=== PATIENT | female | born 1975 | race Caucasian/White ===

== ENCOUNTER 2023-09-05 17:33 | Emergency (ER) | payer OTHER, SELFPAY ==
[2023-09-05] VITALS (8 sets, daily range): BP systolic 146–193; BP diastolic 83–175
[2023-09-05 18:14] LABS: INR 1.09; PT 13.9 Sec (11.4-14.6)
[2023-09-05 18:16] LABS: ALT (SGPT) 36 U/L (0-35); AST (SGOT) 29 U/L (14-36); Albumin 4.3 g/dl (3.5-5.0); Alkaline Phosphatase 145 U/L (38-126); Blood Urea Nitrogen 13 mg/dl (7-17); Carbon Dioxide 25 mmol/L (22-30); Chloride 105 mmol/L (98-107); Glucose 135 mg/dl (70-99); Potassium 3.5 mmol/L (3.5-5.1); Sodium 141 mmol/L (135-145); Total Bilirubin 0.4 mg/dl (0.2-1.3); Total Protein 7.2 g/dl (6.3-8.2); eGFR > 60.00
[2023-09-05 18:17] LABS: % Basophils 0.5 % (0-2); % Eosinophils 1.1 % (0-6); % Immature Granulocytes 0.3 % (0-0.5); % Lymphocytes 21.9 % (20.5-51.1); % Monocytes 5.1 % (1.7-9.3); % Neutrophils 71.1 % (42.2-75.2); Absolute Basophils 0.1 10^3/uL (0-0.2); Absolute Eosinophils 0.1 10^3/uL (0-0.7); Absolute Lymphocytes 2.3 10^3/uL (1.2-3.4); Absolute Monocytes 0.5 10^3/uL (0.1-0.6); Absolute Neutrophils 7.5 10^3/uL (1.4-6.5); Hematocrit 37.6 % (37.0-47.0); Hemoglobin 12.3 g/dL (12.0-16.0); Mean Corp Hgb Conc. 32.7 g/dL (33.0-37.0); Mean Corpuscular Hgb 23.5 pg (27.0-31.0); Mean Corpuscular Volume 71.9 fL (81.0-99.0); Mean Platelet Volume 9.7 fL (7.4-10.4); Nucleated Red Blood Cells % 0 %; Platelet Count 275 10^3/uL (130-400); Red Blood Cell Count 5.23 10^6/uL (4.20-5.40); Red Cell Dist. Width 15.6 % (11.5-14.5); White Blood Cell Count 10.5 10^3/uL (4.8-10.8)
[2023-09-05 18:25] LABS: Troponin I < 0.012 ng/ml
--- NOTE | 2023-09-05 18:55 | ED.GENMED ---
History of Present Illness
<ISIDRA Leija - Last Filed: 09/06/23 01:09>
General
Chief Complaint: Heart Rate Problem
Source: patient
Exam Limitations: none
Time Seen by Provider: 09/05/23 18:39
Travel History
Have you had any contact with someone who has COVID-19?: No
Do you have any symptoms of coronavirus? Fever > 100 degrees, chills, cough, shortness of breath, sore throat, loss of taste or smell, muscle aches, or headache?: No
History of Present Illness
History of Present Illness:
This is a 47 year old female that comes in with c/o chest pain and Tachycardia. State that everything was fine today. Sates that she got home for work and took the dog out for a walk. States that around 4pm she just started to not feel well and was
nauseated. State that she laid down on the sofa and then felt her heart pounding in her chest. States that she tried to deep breath and this continued for 20 min. States that she then started with diarrhea and she laid down again. States that she
used her apple watch and her heart rate was going between 120-130. States she tried to keep deep breathing. States that she had chest pain with the SOB, nausea and diarrhea. States that she also felt lightheaded. Denies any fever, chills, abd pain,
vomiting, headache, dizziness, urinary burning.
Past History
<ISIDRA Leija - Last Filed: 09/06/23 01:09>
Past History
ED Past Medical History: Fibromyalgia and Other (optic neurtitis, migraine headaches , UTI, Psoriasis, )
ED Past Surgical History: (X 2), Gynecological (Hysterectomy Total), Orthopedic (Left knee surgery, ) and Other (Brain Aneurysm, Gastric sleeve)
Social History
Tobacco: Non-smoker
Alcohol: Occasional
Personal:
Living: with family
Employment: Not employed
Family History
Family History: Negative Early CAD or Sudden
Review of Systems
<ISIDRA Leija - Last Filed: 09/06/23 01:09>
Review of Systems
All Other Systems: ROS reviewed and negative except as documented in HPI and ROS
Constitutional: Reports no symptoms; Denies fever or chills
EENT: Reports no symptoms
Respiratory: Reports trouble breathing; Denies cough
Cardiac: Reports chest pain
ABD/GI: Reports nausea and diarrhea; Denies abdominal pain or vomiting
: Reports no symptoms; Denies dysuria, frequency or urgency
Musculoskeletal: Reports no symptoms
Skin: Reports no symptoms
Neurological: Reports other (Lightheaded); Denies dizzy or headache
Psychiatric: Reports no symptoms
Phy Exam
<ISIDRA Leija - Last Filed: 09/06/23 01:09>
General Physical Exam
General Presentation: no apparent distress
General age: appears stated age
General Skin: warm and dry
General Habitus: normal
General Mental: alert
General Hydration: appears well hydrated
ENT Exam
ENT Exam: TM's normal, pharynx normal and neck supple
Eye Exam
Eye Exam: EOMI
Cardiovascular Exam
Cardiovascular Exam: no edema, no murmur, normal peripheral pulses and tachycardia
Pulmonary Exam
Pulmonary Exam: lungs clear, no respiratory distress, no rales, chest non tender, no crackles, no rhonchi, no wheezing and no cough
Gastrointestinal Exam
Gastrointestinal Exam: normal bowel sounds, non tender, soft, no organomegaly, no pulsatile mass and non distended
Musculoskeletal Exam
Musculoskeletal Exam: full ROM and no edema
Skin Exam
Skin Exam: normal color, warm/dry, no rash and no petechia
Psychiatric Exam
Psychiatric Exam: normal mood/affect
Course
<ISIDRA Leija - Last Filed: 09/06/23 01:09>
Orders/Labs/Results
Orders:
Orders
09/05/23 17:35
Electrocardiogram (*1) Urgent
Reason for Study: Chest Pain
EKG- Treatment ONCE
09/05/23 17:53
Complete Blood Count/With Diff Urgent
Comprehensive Metabolic Panel Urgent
Free T4 Urgent
Prothrombin Time Urgent
TSH Reflex To Free T4 Urgent
Comment: ADD ON
Troponin I Urgent
09/05/23 18:54
Add On- LAB Urgent
Tests Added?: TSH with free T4
EKG- Treatment ONCE
09/05/23 20:55
COVID-19 Antigen Urgent
Source: Nasal Swab
D-Dimer Urgent
09/05/23 20:59
Troponin I Urgent
09/05/23 21:00
Electrocardiogram (*1) Urgent
Reason for Study: Chest Pain
Other Reason for Exam: Repeat with Troponin
09/05/23 22:35
CR Chest - 2 Views Urgent
Comment:
Reason For Exam: Chest pain
09/05/23 22:47
CT Chest Pe Study Urgent
Comment: History of Aneusyms
Reason For Exam: Chest pain, SOB
Metoprolol [Lopressor] 2.5 mg IV NOW STA
Abnormal Lab Results
09/05/23
17:53
MCV 71.9 L fL
(81.0-99.0)
MCH 23.5 L pg
(27.0-31.0)
MCHC 32.7 L g/dL
(33.0-37.0)
RDW 15.6 H %
(11.5-14.5)
Absolute Neuts (auto) 7.5 H 10^3/uL
(1.4-6.5)
Creatinine 0.5 L mg/dL
(0.6-1.0)
Glucose 135 H mg/dl
(70-99)
ALT 36 H U/L
(0-35)
Alkaline Phosphatase 145 H U/L
(38-126)
TSH (Reflex) < 0.02 L uIU/ml
(0.47-4.68)
Free T4 2.23 H ng/dl
(0.78-2.19)
09/05/23 17:53
09/05/23 17:53
Anemia, Glucose nonfasting. alk phos mildly elevated. PT 13.9 with INR 1.09, Troponin <0.012
Second Troponin <0.012, D-dimer 0.30, TSH low at <0.02, Free T4 2.23
Vital Signs
Initial and Last Documented VS:
Initial Vital Signs
Temp Pulse Resp BP Pulse Ox
98.8 F 126 18 146/108 99
09/05/23 17:43 09/05/23 17:43 09/05/23 17:43 09/05/23 17:43 09/05/23 17:43
Last Documented Vital Signs
Temp Pulse Resp BP Pulse Ox
98.8 F 113 9 150/89 97
09/05/23 17:43 09/05/23 22:30 09/05/23 22:30 09/05/23 22:30 09/05/23 22:30
<Julio Odonnell MD - Last Filed: 09/05/23 22:49>
Orders/Labs/Results
Orders:
Orders
09/05/23 17:35
Electrocardiogram (*1) Urgent
Reason for Study: Chest Pain
EKG- Treatment ONCE
09/05/23 17:53
Complete Blood Count/With Diff Urgent
Comprehensive Metabolic Panel Urgent
Free T4 Urgent
Prothrombin Time Urgent
TSH Reflex To Free T4 Urgent
Comment: ADD ON
Troponin I Urgent
09/05/23 18:54
Add On- LAB Urgent
Tests Added?: TSH with free T4
EKG- Treatment ONCE
09/05/23 20:55
COVID-19 Antigen Urgent
Source: Nasal Swab
D-Dimer Urgent
09/05/23 20:59
Troponin I Urgent
09/05/23 21:00
Electrocardiogram (*1) Urgent
Reason for Study: Chest Pain
Other Reason for Exam: Repeat with Troponin
09/05/23 22:35
CR Chest - 2 Views Urgent
Comment:
Reason For Exam: Chest pain
09/05/23 22:47
CT Chest Pe Study Urgent
Comment: History of Aneusyms
Reason For Exam: Chest pain, SOB
Metoprolol [Lopressor] 2.5 mg IV NOW STA
Abnormal Lab Results
09/05/23
17:53
MCV 71.9 L fL
(81.0-99.0)
MCH 23.5 L pg
(27.0-31.0)
MCHC 32.7 L g/dL
(33.0-37.0)
RDW 15.6 H %
(11.5-14.5)
Absolute Neuts (auto) 7.5 H 10^3/uL
(1.4-6.5)
Creatinine 0.5 L mg/dL
(0.6-1.0)
Glucose 135 H mg/dl
(70-99)
ALT 36 H U/L
(0-35)
Alkaline Phosphatase 145 H U/L
(38-126)
TSH (Reflex) < 0.02 L uIU/ml
(0.47-4.68)
Free T4 2.23 H ng/dl
(0.78-2.19)
09/05/23 17:53
09/05/23 17:53
Vital Signs
Initial and Last Documented VS:
Initial Vital Signs
Temp Pulse Resp BP Pulse Ox
98.8 F 126 18 146/108 99
09/05/23 17:43 09/05/23 17:43 09/05/23 17:43 09/05/23 17:43 09/05/23 17:43
Last Documented Vital Signs
Temp Pulse Resp BP Pulse Ox
98.8 F 113 9 150/89 97
09/05/23 17:43 09/05/23 22:30 09/05/23 22:30 09/05/23 22:30 09/05/23 22:30
<ISIDRA Leija - Last Filed: 09/06/23 01:09>
MDM/Problems Addressed
Differential Diagnosis Includes:
COVID, PE, Tachycardia
MDM/Problems Addressed:
This is a 47 year old female that comes in with c/o tachycardia. State that this started after she got home for work. State that she started to feel nauseated and then her heart was pounding in her chest. States that she tried to deep breath but
this did not go away. States that her mother has a history of Aneurysm.
Will check labs, D-dimer, Give IV fluids.
Back into see patient. Explained that her CT was negative for PE. Patient was seen earlier by Dr. Odonnell and he mentioned to her about her Hyperactive Thyroid. Explained to patient that she is also Anemia. Will have patient follow up with the family
doctor. Patient heart rate is 96 at this time. Will give patient a prescription for Metoprolol for home. Patient to return with any concerns.
Chronic conditions affecting care:
NA
Chronic conditions affecting care: Other
Acute Exacerbation and/or Progression of Chronic Illness:
NA
<ISIDRA Leija - Last Filed: 09/06/23 01:09>
*Radiology
Radiology exam reviewed: radiology read reviewed (CT-Technically fair contrast opacification of the pulmonary arteries. There is some limitation due to respiratory motion. No appreciable pulmonary embolus to th larger segmental pulmonary arterial
level. Assessment of the smaller peripheral vasculature is somewhat limited. No acute thoracic aortic ) and other (CT cont-pathology. Normal size heart. No significant pericardial effusion. NO evidence for pneumonia or pulmonary edema. No pleural
effusion or pneumothorax. No acute findings in the visualized uper abdomen Post sleeve gastrectomy anatomy)
*Pulse Oximetry
Patient hypoxic: no
*EKG
Interpreted by ED Provider?: Yes
Heart Rate: 133
Rate: tachycardiac
Rhythm: sinus
[place]: normal axis
Interval: normal interval
QRS Pattern: normal QRS
Ischemia: no ischemia
*Singing Messenger Interpretation
Rate: tachycardiac
Heart Rate: 118
Rhythm: sinus tachycardia
*Critical Care Note
Total Time (30-74mins, 75-104mins- exclusive of procedures): Not Applicable
ED Attending Note
<ISIDRA Leija - Last Filed: 09/06/23 01:09>
-
Portions of this chart may have been created with voice recognition software.� Occasional wrong word or��sound alike� substitutions may have occurred due to the inherent limitations of voice recognition software.
<Julio Odonnell MD - Last Filed: 09/05/23 22:49>
ED Attending Note
Patient seen and examined by attending physician: Yes
I performed the substantive portion of visit, reviewed & personally made and approve the management plan that is documented in note by myself or MATTIE.: Yes
ED Attending Note:
47-year-old female with relatively sudden onset of heart racing flushed feeling some mild pain in the left side of her neck and left upper arm. No pleuritic pain no fever no infectious symptoms. No history of same. No recent hot flashes or heart
racing.
On exam patient is nontoxic in no distress. She is mildly tachycardic and regular she is warm and dry and perfusing well in no distress
Labs are stable. Possible mild hyperthyroidism with low TSH and slightly high free T4. Cardiac testing negative. D-dimer negative however with ongoing tachycardia feels the scan is warranted. Will also start low-dose beta-jeannie.
Discharge Plan
Departure
Patient Disposition: Home (Routine Discharge)
Date of Disposition: 09/06/23
Time of Disposition: 00:42
Patient with high blood pressure during this ER visit?: Yes
Condition: Good
Covid-19: Not Applicable
Discharge Problem:
Sinus tachycardia
Instructions: Sinus Tachycardia (DC), BLOOD PRESSURE
Prescriptions:
New
metoprolol succinate 25 mg tablet extended release 24 hr
25 mg PO DAILY Qty: 15 0RF
No Action
Otezla 30 MG tablet
30 mg PO TID
Referrals:
Giorgio Crawford MD [Family Provider] - Follow up in 2-3 days
Activity Restrictions/Additional Instructions:
As discussed, your blood work shows that you are a little anemia. Your Thyroid function also shows that you are Hyperactive. This will need to be followed up by the family doctor. Your CT of the chest is negative for any Pulmonary embolism and no
aneurysms noted. You have had a prescription for Metoprolol sent to your Pharmacy. This will help lower your BP and also keep your heart more regular. Pleaes follow up with the family doctor in the [place] 2-3 days. Please increase your water intake
to 8-8oz glasses dialy. IF YOU HAVE ANY OTHER CONCERNS PLEASE RETURN TO THE EMERGENCY ROOM.
Interventions
Interventions:
*Risk Screen - Suicide Last Done: 09/05/23 17:43
*General Assessment Last Done: 09/05/23 17:43
*Neglect/Abuse Screening Last Done: 09/05/23 17:43
ED- Fall Risk Assessment Last Done: 09/05/23 18:36
*ED COVID-19 Vaccine History Last Done: 09/05/23 18:33
ED- Cardiac Assessment Last Done: 09/05/23 18:33
ED- Pulmonary Assessment Last Done: 09/05/23 18:34
[2023-09-05 20:10] LABS: TSH Reflex To Free T4 < 0.02 uIU/ml (0.47-4.68)
[2023-09-05 20:40] LABS: Free T4 2.23 ng/dl (0.78-2.19)
[2023-09-05 21:33] LABS: COVID-19 Antigen Negative (Negative)
[2023-09-05 21:38] LABS: Troponin I < 0.012 ng/ml
[2023-09-06] MEDS: LOPRESSOR 2.5 MG IV (00:01)
[2023-09-06 00:08] VITALS: BP 127/86
[2023-09-06 00:30] VITALS: BP 146/93
== END 2023-09-06 01:05 | disposition home or self-care (01) ==
LOC: EMR 17:33
PROVIDERS: Clinical Nurse Specialist Family Health; Emergency Medicine; EMERGENCY PHYSICIAN Emergency Medicine; FAMILY PHYSICIAN Family Medicine
DX: R00.0 Tachycardia, unspecified (principal); M79.7 Fibromyalgia; L40.9 Psoriasis, unspecified
CPT/HCPCS: 99284; 96374; 71046; 71275; 80053; 84439; 84443; 84484; 85025; 85379; 85610; 87811; 93005; Q9967

== ENCOUNTER → 2024-01-01 18:01 | Outpatient (REF) | payer OTHER, SELFPAY | LOC: RAD 18:01 | PROVIDERS: ATTENDING PHYSICIAN Nurse Practitioner Family; FAMILY PHYSICIAN Family Medicine | DX: M54.2 Cervicalgia (principal); M54.12 Radiculopathy, cervical region | CPT/HCPCS: 72050 ==

== ENCOUNTER 2024-01-08 11:42 | Emergency (ER) | payer OTHER, SELFPAY ==
[2024-01-08 11:44] VITALS: BP 166/107
[2024-01-08 12:19] VITALS: BMI 35.7
[2024-01-08 12:46] VITALS: BP 143/90
--- NOTE | 2024-01-08 12:49 | EDRN ---
Pt is awaiting to be seen by ED PCP at this time. Pt in BR obtaining urine spec at this time.
--- NOTE | 2024-01-08 13:10 | EDRN ---
Charles Ding PA in to see pt at this time.
--- NOTE | 2024-01-08 13:16 | ED.GENMED ---
History of Present Illness
General
Chief Complaint: Back Pain
Source: patient
Time Seen by Provider: 01/08/24 12:59
History of Present Illness
History of Present Illness:
48yoF with a history of ADHD presenting with her son for evaluation of neck pain. She initially woke up from sleep on 12/25/23 with left sided neck pain. She denies any trauma to the area. She went to urgent care and was prescribed naproxen and
Flexeril. Her pain continued so she went to see her PCP. She was started on PO Valium 2mg and a prednisone taper which she is still taking. Her Valium dose was recently increased to 5mg TID due to continued pain. She had cervical spine x-rays on
01/01/24 which revealed mild bilateral C7/T1 neural foraminal narrowing. She is here with persistent neck pain as well as 'pins and needles' in her L arm and leg. She denies any chest pain, shortness of breath, fevers.
Past History
Past History
ED Past Medical History: Fibromyalgia and Other (optic neurtitis, migraine headaches , UTI, Psoriasis, )
ED Past Surgical History: (X 2), Gynecological (Hysterectomy Total), Orthopedic (Left knee surgery, ) and Other (Brain Aneurysm, Gastric sleeve)
Social History
Tobacco: Non-smoker
Alcohol: Occasional
Personal:
Living: with family
Employment: Not employed
Family History
Family History: Negative Early CAD or Sudden
Phy Exam
General Physical Exam
General Presentation: well appearing and no apparent distress
General age: appears stated age
General Skin: warm and dry
General Habitus: normal
General Mental: alert
Cardiovascular Exam
Cardiovascular Exam: regular rate/rhythm, no murmur and normal peripheral pulses (2+ radial and DP pulses bilaterally)
Pulmonary Exam
Pulmonary Exam: lungs clear, no respiratory distress and no crackles
Neurological Exam
Neurological Exam: no motor deficits and other (5/5 strength in all extremities)
Musculoskeletal Exam
Musculoskeletal Exam: neck pain (+Tenderness and muscle tightness along the cervical portion of the L trapezius muscle. No midline spinous process pain. ROM limited 2/2 pain although there is no meningismus)
Skin Exam
Skin Exam: normal color and warm/dry
Course
Orders/Labs/Results
Orders:
Orders
01/08/24 13:15
CT Cervical Spine W/o Iv Contr Urgent
Comment:
Reason For Exam: L sided neck pain x 2 weeks, tingling in L arm/leg
Acetaminophen [Tylenol] 1,000 mg PO NOW STA
Ketorolac [Toradol] 30 mg IM NOW STA
Lidocaine [Lidocaine 4% Patch] 1 patch TOPICAL DAILY
Apply Lidocaine patch(s) to:: L neck
diazePAM [Valium Injection] 5 mg IM NOW STA
Vital Signs
Initial and Last Documented VS:
Initial Vital Signs
Temp Pulse Resp BP Pulse Ox
98.1 F 104 20 166/107 98
01/08/24 11:44 01/08/24 11:44 01/08/24 11:44 01/08/24 11:44 01/08/24 11:44
Last Documented Vital Signs
Temp Pulse Resp BP Pulse Ox
98.1 F 88 16 153/93 99
01/08/24 11:44 01/08/24 15:27 01/08/24 15:27 01/08/24 15:27 01/08/24 15:27
MDM/Problems Addressed
Differential Diagnosis Includes:
48yoF here with L neck pain x 2 weeks. Has been seen by PCP and urgent care for the same. No relief with naproxen, prednisone, Valium. Here with persistent pain and paresthesias of L arm/leg. She is well appearing and hemodynamically stable. There
is reproducible tenderness along the L trapezius muscle on exam. Extremities are neurovascularly intact. Differential diagnosis includes but is not limited to: muscular strain, cervical radiculopathy, doubt fracture
Initial ED plan: Check CT cervical spine. IM Toradol, Valium, Tylenol, and lidocaine patch for pain.
*Critical Care Note
Total Time (30-74mins, 75-104mins- exclusive of procedures): Not Applicable
Update Note
Update Note:
CT cervical spine shows posterior disc osteophyte complexes at C5-6 and C6-7 which may cause mild narrowing of L lateral recess at each level. No other acute findings on imaging. She is stable for discharge. Advised heat, massage, TENS unit. Advised
f/u with pain management and PCP. ED return precautions discussed. She was discharged in stable condition.
ED Attending Note
-
Portions of this chart may have been created with voice recognition software.� Occasional wrong word or��sound alike� substitutions may have occurred due to the inherent limitations of voice recognition software.
Discharge Plan
Departure
Patient Disposition: Home (Routine Discharge)
Date of Disposition: 01/08/24
Time of Disposition: 14:32
Patient with high blood pressure during this ER visit?: Yes
Discharge Problem:
Neck pain on left side
Instructions: Neck pain
Prescriptions:
No Action
Otezla 30 MG tablet
30 mg PO TID
metoprolol succinate 25 mg tablet extended release 24 hr
25 mg PO DAILY Qty: 15 0RF
Referrals:
Walt Landers MD [Active] -
Ally English CRNP [Family Provider] -
Activity Restrictions/Additional Instructions:
Continue naproxen, prednisone, and Valium as prescribed by your family doctor. Use heat, massage, and TENS unit. You may also take Tylenol 650mg every 6 hours as needed.
Please follow-up with your family doctor and pain management. Return to the ER with any new or worsening symptoms.
Interventions
Interventions:
*Risk Screen - Suicide Last Done: 01/08/24 11:44
*General Assessment Last Done: 01/08/24 11:44
*Neglect/Abuse Screening Last Done: 01/08/24 11:44
ED- Fall Risk Assessment Last Done: 01/08/24 11:48
*ED COVID-19 Vaccine History Last Done: 01/08/24 12:17
*Nursing Disposition Last Done: 01/08/24 15:27
ED-Musculoskeletal Assessment Last Done: 01/08/24 12:17
Discharge Date and Time
Discharge Date/Time: 01/08/24 15:28
Print Language: ANDORRAN
[2024-01-08] MEDS: LIDOCAINE 4% PATCH 1 PATCH TOPICAL (13:39)
[2024-01-08] MEDS: VALIUM INJECTION 5 MG IM (13:40)
[2024-01-08] MEDS: TORADOL 30 MG IM (13:40)
[2024-01-08] MEDS: TYLENOL 1000 MG PO (13:41)
--- NOTE | 2024-01-08 14:29 | EDRN ---
Pt remains w/ pain at same severity. Pt is sleepy and has an unsteady gait post the valium. Charles FAIRBANKS in room w/ pt at this time.
[2024-01-08 15:27] VITALS: BP 153/93
--- NOTE | 2024-01-08 15:27 | EDRN ---
Pt no longer feeling fatigued and dizzy and gait is normal now.
== END 2024-01-08 15:28 | disposition home or self-care (01) ==
LOC: EMR 11:42
PROVIDERS: EMERGENCY PHYSICIAN Emergency Medicine; FAMILY PHYSICIAN Nurse Practitioner Family
DX: M54.2 Cervicalgia (principal); M79.7 Fibromyalgia; L40.9 Psoriasis, unspecified; Z87.440 Personal history of urinary (tract) infections; Z90.710 Acquired absence of both cervix and uterus
CPT/HCPCS: 99284; 96372; 72125

== ENCOUNTER 2024-09-23 20:00 | Emergency (ER) | payer BC, OTHER, SELFPAY ==
[2024-09-23 20:06] VITALS: BP 152/100
[2024-09-23] MEDS: NORCO 5/325 1 TABLET PO (22:16)
--- NOTE | 2024-09-23 22:16 | ED.MUSCINJ ---
HPI-Injury
General
Chief Complaint: Fall
Source: patient
Exam Limitations: none
Time Seen by Provider: 09/23/24 20:35
Nursing documentation reviewed up to this point in time: agreed with
History of Present Illness-Injury
Is this injury a work related problem?: No
Is pt an associate of [facility] [place]?: No
Initial Injury comments:
Patient states her knee gave out and she fell. Fell backwards onto floor. No LOC. COmplains of pain to her neck. Brought to ED b spouse for eval. Incident occurre today.
Past History
Past History
ED Past Medical History: Fibromyalgia and Other (optic neurtitis, migraine headaches , UTI, Psoriasis, )
ED Past Surgical History: (X 2), Gynecological (Hysterectomy Total), Orthopedic (Left knee surgery, ) and Other (Brain Aneurysm, Gastric sleeve)
Social History
Tobacco: Non-smoker
Alcohol: Occasional
Personal:
Living: with family
Employment: Not employed
Family History
Family History: Negative Early CAD or Sudden
Review of Systems
Review of Systems
Allergies reviewed?: Yes
All Other Systems: ROS reviewed and negative except as documented in HPI and ROS
Constitutional: Reports no symptoms
Musculoskeletal: Reports neck pain
Skin: Reports no symptoms
Neurological: Reports no symptoms
Psychiatric: Reports no symptoms
Musculoskeletal Injury Exam
Musculoskeletal Injury Exam
Posterior Neck:
Pain with Movement?: Moderate
Tender to palpation?: Moderate
Soft tissue swelling?: None
External deformity and angulation?: None
Joint effusion?: None
Contusion?: Moderate
Hematoma-local bleeding into tissue?: None
Strain- Sprain- Tear (Connective tissue injury)?: Moderate
Crepitus with movement?: No
Joint instability?: No
Malalignment/deformity?: No
Range of motion: Limited
Distal skin color and temperature: normal-warm & good color
Capillary Refill: normal
Normal distal neurovascular exam?: Yes
Phy Exam
General Physical Exam
General Presentation: well appearing and mild distress
General age: appears stated age
General Skin: warm and dry
General Mental: alert
Neurological Exam
Neurological Exam: alert, oriented x3, CN II-XII intact, no motor deficits, no sensory deficits, speech normal and normal gait
Musculoskeletal Exam
Musculoskeletal Exam: neck pain and neuro vasc intact
Skin Exam
Skin Exam: normal color, warm/dry and no rash
Psychiatric Exam
Psychiatric Exam: normal mood/affect
Injury Course
Orders/Labs/Results
Orders:
Orders
09/23/24 20:[address]
CT Cervical Spine W/o Iv Contr Urgent
Comment:
Reason For Exam: injury
CT Head W/o Iv Contrast Urgent
Comment:
Reason For Exam: injury
09/23/24 22:12
Hydrocodone 5/APAP 325 [[place] 5/325] 1 tablet PO NOW STA
*Radiology
Radiology exam reviewed: radiology read reviewed
*Pulse Oximetry
Patient hypoxic: no
*Critical Care Note
Total Time (30-74mins, 75-104mins- exclusive of procedures): Not Applicable
ED Attending Note
-
Portions of this chart may have been created with voice recognition software.� Occasional wrong word or��sound alike� substitutions may have occurred due to the inherent limitations of voice recognition software.
Discharge Plan
Departure
Patient Disposition: Home (Routine Discharge)
Date of Disposition: 09/23/24
Time of Disposition: 22:12
Patient with high blood pressure during this ER visit?: No
Condition: Good
Covid-19: Not Applicable
Discharge Problem:
Neck pain
Instructions: Contusion (DC), Preventing falls in adults, Using Cold for Pain, Back Pain
Prescriptions:
New
hydrocodone-acetaminophen 5-325 mg tablet
1 tab PO Q4H PRN (Reason: Pain) Qty: 10 0RF
No Action
Otezla 30 MG tablet
30 mg PO TID
metoprolol succinate 25 mg tablet extended release 24 hr
25 mg PO DAILY Qty: 15 0RF
Activity Restrictions/Additional Instructions:
Follow up with your family doctor.
Interventions
Interventions:
*Risk Screen - Suicide Last Done: 09/23/24 21:43
*General Assessment Last Done: 09/23/24 20:06
*Neglect/Abuse Screening Last Done: 09/23/24 21:43
*ED- Fall Risk Assessment Last Done: 09/23/24 21:43
*ED COVID-19 Vaccine History Last Done: 09/23/24 21:43
ED-Musculoskeletal Assessment Last Done: 09/23/24 21:42
ED- Neurological Assessment Last Done: 09/23/24 21:42
ED-Skin Assessment Last Done: 09/23/24 21:42
Discharge Date and Time
Print Language: GEORGIAN
== END 2024-09-23 22:42 | disposition home or self-care (01) ==
LOC: EMR 20:00
PROVIDERS: EMERGENCY PHYSICIAN Emergency Medicine; FAMILY PHYSICIAN Family Medicine
DX: M54.2 Cervicalgia (principal); M79.7 Fibromyalgia; L40.9 Psoriasis, unspecified; Z87.440 Personal history of urinary (tract) infections; Z90.710 Acquired absence of both cervix and uterus
CPT/HCPCS: 99284; 70450; 72125